=== PATIENT | female | born 1960 | race Two or more races ===

== ENCOUNTER → 2018-05-23 | Outpatient (CLI) | payer MEDICAID ==
[2018-05-23 16:45] LABS: ERYTHROCYTE SEDIMENTATION RATE 9 mm/hr (0-30)
[2018-05-23 17:20] LABS: RHEUMATOID FACTOR QUANT < 10.0 IU/ML (<15.0)
[2018-05-23 17:40] LABS: FOLATE 18.1 NG/ML
[2018-05-28 14:13] LABS: ANTINUCLEAR ANTIBODIES DIRECT Negative (Negative); CERULOPLASMIN 24.1 mg/dL (19.0-39.0); COPPER PLASMA 106 ug/dL (72-166); VITAMIN B1 LEVEL WHOLE BLOOD 92.7 nmol/L (66.5-200.0); VITAMIN B6,PYRIDOXAL PHOSPHATE 5.8 ug/L (2.0-32.8); VITAMIN E(ALPHA TOCOPHEROL) 15.4 mg/L (7.0-25.1); VITAMIN E(GAMMA TOCOPHEROL) 1.5 mg/L (0.5-5.5)
== END ==
LOC: M LAB 14:20
DX: R51 Headache (principal); M54.2 Cervicalgia; R26.89 Other abnormalities of gait and mobility
CPT/HCPCS: 82746

== ENCOUNTER → 2018-10-08 | Outpatient (REF) | payer MEDICAID ==
[2018-10-08 14:08] LABS: FREE T4 0.81 NG/DL (0.76-1.46); THYROID STIMULATING HORMONE 4.18 uIU/ML (0.358-3.740)
== END ==
LOC: M LABDRAW1 13:34
PROVIDERS: ATTEND Nurse Practitioner Family
DX: E04.2 Nontoxic multinodular goiter (principal)

== ENCOUNTER 2018-10-17 15:22 | Emergency (ER) | payer MEDICAID, OTHER ==
[~2018-10-17] VITALS: Ht 172.7 cm; Wt 70.5 kg
[2018-10-17] MEDS ORDERED: SERT-138 PO (15:30)
[2018-10-17] MEDS ORDERED: ACE65ERTAB PO (15:30)
[2018-10-17] MEDS ORDERED: TIZA4CAP PO (15:30)
[2018-10-17] MEDS ORDERED: ALPR0.5T3 PO (15:30)
[2018-10-17] MEDS ORDERED: PANT40TA3 PO (15:30)
[2018-10-17] MEDS ORDERED: COMBAER6 INH (15:33)
[2018-10-17 16:40] LABS: INFLUENZA A AMPLIFICATION NEGATIVE (NEGATIVE); INFLUENZA B AMPLIFICATION NEGATIVE (NEGATIVE)
[2018-10-17] MEDS ORDERED: NS 1,000 ML IV ONE (17:30)
[2018-10-17] MEDS ORDERED: methylPREDNISolone INJ 125 MG/2 ML VIAL (J2930) IV ONE (17:30)
[2018-10-17 17:53] LABS: BASO % 0.5 % (0.0-1.0); HEMATOCRIT 36.6 % (36.0-47.0); HEMOGLOBIN 12.4 g/dl (12.0-15.5); LYMPH # 2.3 10^3/uL (1.5-4.5); LYMPH % 31.2 % (24.0-44.0); MEAN CORPUSCULAR HGB CONC 33.9 g/dl (32.0-36.5); MEAN CORPUSCULAR VOLUME 88.6 fl (80.0-96.0); MONO # 0.6 10^3/uL (0.0-0.8); MONO % 8.2 % (0.0-5.0); NEUTROPHILS # 4.5 10^3/uL (1.8-7.7); PLATELET COUNT, AUTOMATED 250 10^3/uL (150-450); RED BLOOD COUNT 4.13 10^6/uL (4.00-5.40); WHITE BLOOD COUNT 7.4 10^3/uL (4.0-10.0)
--- NOTE | 2018-10-17 17:55 | REP ---
Chest two views HISTORY: Cough Comparison: None The lungs are clear. The heart is normal in size. The pulmonary vasculature is normal in appearance. The bony structure is intact. IMPRESSION: No acute disease. Electronically Signed by Mak Sung MD 10/17/2018 05:47 P
--- NOTE | 2018-10-17 18:13 | ECGEPIP ---
Stationary ECG Study [facility] - ED Test Date: 2018-10-17 Pat Name: SADAF SHETH Department: Room: - Gender: F [employer] Insurance: albert : 1960 Requested By: CYNDI RAMIREZ Order Number: [id number] Reading MD: Shahzad Andrade Measurements Intervals [place] Rate: 59 P: 65 MT: 178 QRS: 47 QRSD: 94 T: 57 QT: 456 QTc: 454 Interpretive Statements SINUS BRADYCARDIA NSTTW ABNORMALITIES NO PRIORS FOR COMPARISON Electronically Signed On 10-17-2018 18:13:23 EST by Shahzad Andrade
[2018-10-17 18:18] LABS: ALBUMIN 4.1 GM/DL (3.2-5.2); ALT/SGPT 26 U/L (12-78); BILIRUBIN,DIRECT 0.1 MG/DL (0.0-0.2); BILIRUBIN,TOTAL 0.2 MG/DL (0.2-1.0); BLOOD UREA NITROGEN 14 MG/DL (7-18); CALCIUM LEVEL 8.7 MG/DL (8.5-10.1); CARBON DIOXIDE LEVEL 31 MEQ/L (21-32); CHLORIDE LEVEL 104 MEQ/L (98-107); CK-MB VALUE MASS < 1.0 NG/ML (<3.6); CPK CREATINE PHOSPHOKINASE 84 U/L (26-192); CREATININE FOR GFR 0.68 MG/DL (0.55-1.30); GLOMERULAR FILTRATION RATE > 60.0 (>51); GLUCOSE, FASTING 96 MG/DL (70-100); MB/CK RELATIVE INDEX 1.19 (< OR =4); NT-PRO BNP 127 PG/ML (<125); POTASSIUM SERUM 4.5 MEQ/L (3.5-5.1); SODIUM LEVEL 139 MEQ/L (136-145); TOTAL PROTEIN 7.5 GM/DL (6.4-8.2); TROPONIN I < 0.02 NG/ML (< 0.10)
[2018-10-17] MEDS ORDERED: PRED20TA PO (19:18)
[2018-10-17 19:24] VITALS: BP 155/76
== END 2018-10-17 19:44 | disposition home or self-care (01) ==
LOC: M ED 15:22
DX: J44.1 Chronic obstructive pulmonary disease with (acute) exacerbation (principal); J06.9 Acute upper respiratory infection, unspecified; R00.1 Bradycardia, unspecified; K21.9 Gastro-esophageal reflux disease without esophagitis; M54.5 Low back pain; F41.9 Anxiety disorder, unspecified; Z86.14 Personal history of Methicillin resistant Staphylococcus aureus infection; Z72.0 Tobacco use; Z82.49 Family history of ischemic heart disease and other diseases of the circulatory system; Z79.899 Other long term (current) drug therapy; Z88.1 Allergy status to other antibiotic agents; Z88.0 Allergy status to penicillin
CPT/HCPCS: 71046; 80048; 80076; 82550; 82553; 83880; 85025; 87502; 87880; 93005; 96374; 99284; J2930

== ENCOUNTER → 2018-12-25 | Outpatient (CLI) | payer OTHER ==
[~2018-12-25] MED LIST: ACE65ERTAB PO; ALPR0.5T3 PO; COMBAER6 INH; PANT40TA3 PO; PRED20TA PO; SERT-138 PO; TIZA4CAP PO
[2018-12-25 13:48] LABS: HEMOGLOBIN A1c 6.2 %
[2018-12-25 13:50] LABS: BASO # 0.1 10^3/uL (0.0-0.2); BASO % 0.8 % (0.0-1.0); HEMATOCRIT 37.3 % (36.0-47.0); HEMOGLOBIN 12.4 g/dl (12.0-15.5); LYMPH # 2.1 10^3/uL (1.5-4.5); LYMPH % 31.1 % (24.0-44.0); MEAN CORPUSCULAR HEMOGLOBIN 29.5 pg (27.0-33.0); MEAN CORPUSCULAR HGB CONC 33.2 g/dl (32.0-36.5); MEAN CORPUSCULAR VOLUME 88.6 fl (80.0-96.0); MONO # 0.5 10^3/uL (0.0-0.8); MONO % 7.6 % (0.0-5.0); NEUTROPHILS % 60.3 % (36.0-66.0); PLATELET COUNT, AUTOMATED 270 10^3/uL (150-450); RED BLOOD COUNT 4.21 10^6/uL (4.00-5.40); WHITE BLOOD COUNT 6.6 10^3/uL (4.0-10.0)
[2018-12-25 13:57] LABS: ALBUMIN 3.8 GM/DL (3.2-5.2); ALT/SGPT 22 U/L (12-78); BILIRUBIN,TOTAL 0.3 MG/DL (0.2-1.0); BLOOD UREA NITROGEN 15 MG/DL (7-18); CALCIUM LEVEL 8.6 MG/DL (8.5-10.1); CARBON DIOXIDE LEVEL 31 MEQ/L (21-32); CHLORIDE LEVEL 104 MEQ/L (98-107); CHOLESTEROL LEVEL 269 MG/DL (<200); CHOLESTEROL RISK RATIO 5.847 (<5); CPK CREATINE PHOSPHOKINASE 327 U/L (26-192); CREATININE FOR GFR 0.72 MG/DL (0.55-1.30); GLOMERULAR FILTRATION RATE > 60.0 (>51); GLUCOSE, FASTING 94 MG/DL (70-100); HDL CHOLESTEROL 46 MG/DL (>40); LDL CHOLESTEROL 187 MG/DL (<100); LIPASE 141 U/L (73-393); MAGNESIUM LEVEL 2.1 MG/DL (1.8-2.4); MB/CK RELATIVE INDEX 1.22 (< OR =4); NON-HDL-C 223 MG/DL; POTASSIUM SERUM 4.1 MEQ/L (3.5-5.1); SODIUM LEVEL 139 MEQ/L (136-145); TOTAL PROTEIN 7.3 GM/DL (6.4-8.2); TRIGLYCERIDES LEVEL 182 MG/DL (<150); TROPONIN I < 0.02 NG/ML (< 0.10)
[2018-12-25 14:40] LABS: H PYLORI QUALITATIVE IgG NEGATIVE (NEGATIVE)
== END ==
LOC: M LAB 12:42
PROVIDERS: ATTEND Nurse Practitioner Family
DX: R07.9 Chest pain, unspecified (principal); Z13.228 Encounter for screening for other metabolic disorders; R14.0 Abdominal distension (gaseous)

== ENCOUNTER → 2018-12-31 | Outpatient (CLI) | payer OTHER ==
[2018-12-31 11:03] LABS: FREE T4 0.79 NG/DL (0.76-1.46)
[2019-01-01 09:59] LABS: THYROID PEROXIDASE ANTIBODY > 1300.0 U/ML (<60.0)
== END ==
LOC: M LAB 09:20
PROVIDERS: ATTEND Nurse Practitioner Family
DX: E04.2 Nontoxic multinodular goiter (principal)

== ENCOUNTER → 2019-01-03 | Outpatient (REF) | payer OTHER | LOC: M SFHCPLAZ 13:38 | PROVIDERS: ATTEND Nurse Practitioner Family | DX: Z12.4 Encounter for screening for malignant neoplasm of cervix (principal); N88.8 Other specified noninflammatory disorders of cervix uteri ==

== ENCOUNTER → 2019-01-29 | Outpatient (REF) | payer OTHER ==
[2019-01-29 16:24] LABS: C REACTIVE PROTEIN QUANTITATIV < 0.30 MG/DL (0.00-0.30); RHEUMATOID FACTOR QUANT < 10.0 IU/ML (<15.0)
[2019-02-01 00:07] LABS: ANA (HEP2) Negative (.)
== END ==
LOC: M SFHCPLAZ 14:24
PROVIDERS: ATTEND Nurse Practitioner Family
DX: R52 Pain, unspecified (principal)

== ENCOUNTER → 2019-02-19 | Outpatient (CLI) | payer OTHER ==
--- NOTE | 2019-02-20 20:11 | SLEEPHOME ---
DATE OF PROCEDURE: 02/19/2019 ORDERED BY: JAMES Allan Diagnostic home sleep testing was performed due to concern for the obstructive sleep apnea syndrome in this patient with a history of acid reflux disease. For testing, a nocturnal T3 respiratory monitoring device was used. Continuous record was made of pulse, oxygen saturation, airflow, chest and abdominal strain and body position. 10 hours and 59 minutes of data were reviewed. There were 8 hours marked as time in bed. During the interval marked time in bed there were 79 respiratory events identified of 10 seconds in duration or greater for respiratory event index of 9.9. The events were primarily obstructive, however 22 mixed and central apneas were seen. The events were not exclusive to body posture. Baseline pulse rate 61 beats per minute. Pulse rate ranged 52-155. Baseline saturation of 94%. Saturations fell as low as 77% and the oxygen desaturation index is 2.9. Testing was performed in both the supine and nonsupine positions. IMPRESSION Abnormal home sleep testing with repetitive respiratory events and oxygen desaturations to 77% with a respiratory event index of 9.9 is consistent with the obstructive sleep apnea syndrome. RECOMMENDATIONS The patient should be encouraged to undergo formal sleep evaluation.
== END ==
LOC: M SLEEP HO 10:11
PROVIDERS: ATTEND Nurse Practitioner Family
DX: R06.83 Snoring (principal)

== ENCOUNTER → 2019-02-28 | Outpatient (REF) | payer OTHER ==
[2019-02-28 16:14] LABS: FREE T4 0.72 NG/DL (0.76-1.46); THYROID STIMULATING HORMONE 7.85 uIU/ML (0.358-3.740)
== END ==
LOC: M LABDRAW1 15:44
PROVIDERS: ATTEND Nurse Practitioner Family
DX: E06.3 Autoimmune thyroiditis (principal)

== ENCOUNTER → 2019-03-13 | Outpatient (CLI) | payer OTHER ==
--- NOTE | 2019-03-13 17:05 | REP ---
Pelvic sonography: History: Pelvic pain. Findings: Transabdominal and transvaginal scanning are performed. Uterine dimensions are normal at 5.8 x 4.2 x 2.8 cm. Endometrial echo is 0.3 cm thick. There is a hypoechoic area in the right uterine myometrium measuring 1.3 cm in greatest diameter consistent with fibroid. The right ovary could not be seen and according to the patient is surgically absent. The left ovary measures 2.1 x 1.6 x 1.9 cm and has a normal appearance. Impression: 1.3 cm uterine fibroid. Otherwise negative pelvic sonography. The patient status post right oophorectomy. Electronically Signed by Escobar Tong MD 03/13/2019 07:25 P
== END ==
LOC: M RAD 11:43
PROVIDERS: ATTEND Nurse Practitioner Family
DX: R10.2 Pelvic and perineal pain (principal)

== ENCOUNTER → 2019-05-12 | Outpatient (CLI) | payer OTHER ==
[2019-05-12 14:41] LABS: FREE T4 0.67 NG/DL (0.76-1.46); THYROID STIMULATING HORMONE 2.61 uIU/ML (0.358-3.740)
== END ==
LOC: M LAB 13:38
PROVIDERS: ATTEND Nurse Practitioner Family
DX: E06.3 Autoimmune thyroiditis (principal)

== ENCOUNTER → 2019-05-16 | Outpatient (REF) | payer OTHER ==
[2019-05-16 16:35] LABS: BASO % 0.4 % (0.0-1.0); HEMATOCRIT 35.9 % (36.0-47.0); HEMOGLOBIN 12.2 g/dl (12.0-15.5); LYMPH % 29.2 % (24.0-44.0); MEAN CORPUSCULAR HEMOGLOBIN 30.8 pg (27.0-33.0); MEAN CORPUSCULAR VOLUME 90.7 fl (80.0-96.0); MONO # 0.5 10^3/uL (0.0-0.8); MONO % 7.5 % (0.0-5.0); NEUTROPHILS # 4.2 10^3/uL (1.5-8.5); NEUTROPHILS % 62.6 % (36.0-66.0); PLATELET COUNT, AUTOMATED 225 10^3/uL (150-450); RED BLOOD COUNT 3.96 10^6/uL (4.00-5.40); WHITE BLOOD COUNT 6.7 10^3/uL (4.0-10.0)
[2019-05-16 16:36] LABS: ALBUMIN 3.8 GM/DL (3.2-5.2); ALT/SGPT 24 U/L (12-78); BILIRUBIN,TOTAL 0.3 MG/DL (0.2-1.0); BLOOD UREA NITROGEN 13 MG/DL (7-18); CALCIUM LEVEL 8.7 MG/DL (8.5-10.1); CARBON DIOXIDE LEVEL 29 MEQ/L (21-32); CHLORIDE LEVEL 105 MEQ/L (98-107); CK-MB VALUE MASS 2.6 NG/ML (<3.6); CPK CREATINE PHOSPHOKINASE 122 U/L (26-192); CREATININE FOR GFR 0.65 MG/DL (0.55-1.30); GLOMERULAR FILTRATION RATE > 60.0 (>51); GLUCOSE, FASTING 73 MG/DL (70-100); MB/CK RELATIVE INDEX 2.13 (< OR =4); POTASSIUM SERUM 3.9 MEQ/L (3.5-5.1); SODIUM LEVEL 141 MEQ/L (136-145); TOTAL PROTEIN 7.1 GM/DL (6.4-8.2); TROPONIN I < 0.02 NG/ML (< 0.10)
== END ==
LOC: M SFHCPLAZ 14:10
PROVIDERS: ATTEND Nurse Practitioner Family
DX: R07.89 Other chest pain (principal)

== ENCOUNTER → 2019-06-21 | Outpatient (CLI) | payer OTHER ==
[~2019-06-21] MED LIST changes: +CEFD1CAP8 PO
--- NOTE | 2019-06-24 16:35 | SLEEPCENT ---
DATE OF PROCEDURE: 06/21/2019 ORDERED BY: Kaci Delgado MD Nocturnal polysomnography was performed for the titration of pressure therapy in this patient with a clinical diagnosis of obstructive sleep apnea syndrome confirmed by home testing revealing a respiratory event index of 9.9. For testing the patient was fit with a [employer] Simplus full-face mask of small size, 4 cm of water pressure were applied to the circuit and the lights were extinguished. 7 hours and 52 minutes of data were reviewed. There were 390.5 minutes of sleep identified. Sleep latency was short at 8.5 minutes. Rapid eye movement (REM) latency was delayed at 414.5 minutes. Sleep architecture showed poor progression early in the study. There was some REM late in the test. Overall sleep efficiency was 84.4%. The electrocardiogram showed a sinus rhythm with an average heart rate 60 beats per minute. EEG showed normal waveforms for awake and sleep. Persistence of respiratory events prompted an increase in continuous positive airway pressure (CPAP) despite optimal mask fit and minimal air leak. The patient was changed to a bilevel device to address persistent hypopneic respiratory patterning. Best sleep was seen late in the test on a bilevel device inspiratory 23 over expiratory of 19 with which the patient slept through REM without respiratory event or oxygen desaturation. IMPRESSION: Obstructive sleep apnea syndrome (G47.33). RECOMMENDATIONS: Nightly use of pressure therapy via bilevel device, inspiratory 23 over expiratory of 19.
== END ==
LOC: M SLEEP 20:00
PROVIDERS: ATTEND Internal Medicine Pulmonary Disease
DX: G47.33 Obstructive sleep apnea (adult) (pediatric) (principal)

== ENCOUNTER 2019-07-04 09:14 | Day surgery (SDC) | payer OTHER ==
[~2019-07-04] VITALS: Ht 172.7 cm; Wt 65.2 kg
[~2019-07-04 09:14] MED LIST changes: +NS 1,000 ML IV ONE
[2019-07-04] MEDS ORDERED: PROPOFOL 500 MG/50 ML VIAL As Ordered ONE (11:45)
[2019-07-04] MEDS ORDERED: fentaNYL 100 MCG/2 ML INJECTION (J3010) As Ordered ONE (11:45)
[2019-07-04] MEDS ORDERED: LIDOCAINE 2% INJ 100 MG/5 ML SDV (FOR ANES.) As Ordered ONE (11:45)
--- NOTE | 2019-07-04 11:46 | ROOR ---
Patient Name: Rose Huntley Procedure Date: 07/04/2019 10:51 AM Date of : 1960 Age: 58 Room: [facility] Gender: Female Note Status: Finalized Procedure: Upper GI endoscopy Indications: Epigastric abdominal pain, Dysphagia Providers: Jaylen Gay MD Referring MD: Ave Nazario Requesting Provider: Medicines: Monitored Anesthesia Care Complications: No immediate complications. Procedure: Pre-Anesthesia Assessment: - Prior to the procedure, a History and Physical was performed, and patient medications and allergies were reviewed. The patient is competent. The risks and benefits of the procedure and the sedation options and risks were discussed with the patient. All questions were answered and informed consent was obtained. Patient identification and proposed procedure were verified by the physician, the nurse and the anesthesiologist in the procedure room. Mental Status Examination: alert and oriented. Airway Examination: normal oropharyngeal airway and neck mobility. Respiratory Examination: clear to auscultation. CV Examination: normal. Prophylactic Antibiotics: The patient does not require prophylactic antibiotics. Prior Anticoagulants: The patient has taken no previous anticoagulant or antiplatelet agents. ASA Grade Assessment: II - A patient with mild systemic disease. After reviewing the risks and benefits, the patient was deemed in satisfactory condition to undergo the procedure. The anesthesia plan was to use monitored anesthesia care (MAC). Immediately prior to administration of medications, the patient was re-assessed for adequacy to receive sedatives. The heart rate, respiratory rate, oxygen saturations, blood pressure, adequacy of pulmonary ventilation, and response to care were monitored throughout the procedure. The physical status of the patient was re-assessed after the procedure. The Endoscope was introduced through the mouth, and advanced to the second part of duodenum. The upper GI endoscopy was accomplished without difficulty. The patient tolerated the procedure well. Findings: Patchy, white plaques were found in the middle third of the esophagus and in the lower third of the esophagus. Biopsies were taken with a cold forceps for histology. Biopsies were obtained from the proximal and distal esophagus with cold forceps for histology of suspected eosinophilic esophagitis. Verification of patient identification for the specimen was done by the physician and nurse using the patient's name, date and medical record number. Estimated blood loss was minimal. Scattered mild inflammation characterized by erythema and granularity was found in the gastric antrum. Biopsies were taken with a cold forceps for Helicobacter pylori testing. The duodenal bulb and second portion of the duodenum were normal. Biopsies for histology were taken with a cold forceps for evaluation of celiac disease. Impression: - Esophageal plaques were found, doubt candidiasis. Biopsied. - Gastritis. Biopsied. - Normal duodenal bulb and second portion of the duodenum. Biopsied. Recommendation: - Patient has a contact number available for emergencies. The signs and symptoms of potential delayed complications were discussed with the patient. Return to normal activities tomorrow. Written discharge instructions were provided to the patient. - Resume regular diet. - Continue present medications. - Await pathology results. - Telephone GI clinic for pathology results in 2 weeks. - Return to primary care physician. Jaylen Gay MD Jaylen Gay MD 07/04/2019 11:45:23 AM Electronically signed by Jaylen Gay MD Number of Addenda: 0 Note Initiated On: 07/04/2019 10:51 AM Estimated Blood Loss: Estimated blood loss was minimal.
--- NOTE | 2019-07-04 11:48 | ROOR ---
Patient Name: Rose Huntley Procedure Date: 07/04/2019 10:52 AM Date of : 1960 Age: 58 Room: [facility] Gender: Female Note Status: Finalized Procedure: Colonoscopy Indications: Change in bowel habits, Constipation Providers: Jaylen Gay MD Referring MD: Ave Nazario Requesting Provider: Medicines: Monitored Anesthesia Care Complications: No immediate complications. Procedure: Pre-Anesthesia Assessment: - Prior to the procedure, a History and Physical was performed, and patient medications and allergies were reviewed. The patient is competent. The risks and benefits of the procedure and the sedation options and risks were discussed with the patient. All questions were answered and informed consent was obtained. Patient identification and proposed procedure were verified by the physician, the nurse and the anesthesiologist in the procedure room. Mental Status Examination: alert and oriented. Prophylactic Antibiotics: The patient does not require prophylactic antibiotics. Prior Anticoagulants: The patient has taken no previous anticoagulant or antiplatelet agents. ASA Grade Assessment: II - A patient with mild systemic disease. After reviewing the risks and benefits, the patient was deemed in satisfactory condition to undergo the procedure. The anesthesia plan was to use monitored anesthesia care (MAC). Immediately prior to administration of medications, the patient was re-assessed for adequacy to receive sedatives. The heart rate, respiratory rate, oxygen saturations, blood pressure, adequacy of pulmonary ventilation, and response to care were monitored throughout the procedure. The physical status of the patient was re-assessed after the procedure. The Colonoscope was introduced through the anus and advanced to the terminal ileum, with identification of the appendiceal orifice and IC valve. The colonoscopy was performed without difficulty. The patient tolerated the procedure well. The quality of the bowel preparation was good. The terminal ileum, ileocecal valve, appendiceal orifice, and rectum were photographed. Scope insertion time was 3 minutes. Scope withdrawal time was 9 minutes. The total duration of the procedure was 12 minutes. Findings: The perianal and digital rectal examinations were normal. The terminal ileum appeared normal. Three sessile polyps were found in the ascending colon. The polyps were 4 to 5 mm in size. These polyps were removed with a cold biopsy forceps. Resection and retrieval were complete. Verification of patient identification for the specimen was done by the physician and nurse using the patient's name, date and medical record number. A 5 mm polyp was found in the recto-sigmoid colon. The polyp was sessile. The polyp was removed with a cold biopsy forceps. Resection and retrieval were complete. A few small-mouthed diverticula were found in the sigmoid colon. There was no evidence of diverticular bleeding. Non-bleeding external and internal hemorrhoids were found during retroflexion. The hemorrhoids were medium-sized. Impression: - The examined portion of the ileum was normal. - Three 4 to 5 mm polyps in the ascending colon, removed with a cold biopsy forceps. Resected and retrieved. - One 5 mm polyp at the recto-sigmoid colon, removed with a cold biopsy forceps. Resected and retrieved. - Mild diverticulosis in the sigmoid colon. There was no evidence of diverticular bleeding. - Non-bleeding external and internal hemorrhoids. Recommendation: - Patient has a contact number available for emergencies. The signs and symptoms of potential delayed complications were discussed with the patient. Return to normal activities tomorrow. Written discharge instructions were provided to the patient. - High fiber diet. - Continue present medications. - Await pathology results. - Use fiber, for example Citrucel, Fibercon, Konsyl or Metamucil. - Repeat colonoscopy in 3 - 5 years for surveillance based on pathology results. - Telephone GI clinic for pathology results in 2 weeks. - Return to primary care physician. Jaylen Gay MD Jaylen Gay MD 07/04/2019 11:48:26 AM Electronically signed by Jaylen Gay MD Number of Addenda: 0 Note Initiated On: 07/04/2019 10:52 AM Estimated Blood Loss: Estimated blood loss was minimal.
[2019-07-04 11:50] VITALS: BP 135/87
== END 2019-07-04 12:05 | disposition home or self-care (01) ==
LOC: M OPP 09:14
PROVIDERS: ATTEND Internal Medicine Gastroenterology
DX: K63.5 Polyp of colon (principal); K57.30 Diverticulosis of large intestine without perforation or abscess without bleeding; K64.9 Unspecified hemorrhoids; R19.4 Change in bowel habit; K22.9 Disease of esophagus, unspecified; K29.70 Gastritis, unspecified, without bleeding; R10.13 Epigastric pain; R13.10 Dysphagia, unspecified; J44.9 Chronic obstructive pulmonary disease, unspecified; F17.210 Nicotine dependence, cigarettes, uncomplicated; Z79.899 Other long term (current) drug therapy; Z88.0 Allergy status to penicillin; Z88.8 Allergy status to other drugs, medicaments and biological substances; Z91.018 Allergy to other foods; Z80.0 Family history of malignant neoplasm of digestive organs
CPT/HCPCS: 43239; 45380; 88305; J3010

== ENCOUNTER → 2019-08-14 | Outpatient (CLI) | payer OTHER ==
[~2019-08-14] MED LIST changes: -NS 1,000 ML IV ONE
[2019-08-14 13:40] LABS: FREE T4 0.7 NG/DL (0.76-1.46); THYROID STIMULATING HORMONE 3.98 uIU/ML (0.358-3.740)
== END ==
LOC: M LAB 12:18
PROVIDERS: ATTEND Nurse Practitioner Family
DX: E06.3 Autoimmune thyroiditis (principal)

== ENCOUNTER → 2019-08-14 | Outpatient (CLI) | payer OTHER ==
[2019-08-14 13:07] LABS: BASO # 0.1 10^3/uL (0.0-0.2); BASO % 0.7 % (0.0-1.0); HEMATOCRIT 38.3 % (36.0-47.0); HEMOGLOBIN 12.8 g/dl (12.0-15.5); LYMPH # 2.2 10^3/uL (1.5-5.0); LYMPH % 31.6 % (24.0-44.0); MEAN CORPUSCULAR HEMOGLOBIN 30.2 pg (27.0-33.0); MEAN CORPUSCULAR HGB CONC 33.4 g/dl (32.0-36.5); MEAN CORPUSCULAR VOLUME 90.3 fl (80.0-96.0); MONO # 0.6 10^3/uL (0.0-0.8); MONO % 8.1 % (0.0-5.0); NEUTROPHILS # 4.1 10^3/uL (1.5-8.5); NEUTROPHILS % 59.3 % (36.0-66.0); PLATELET COUNT, AUTOMATED 228 10^3/uL (150-450); RED BLOOD COUNT 4.24 10^6/uL (4.00-5.40); WHITE BLOOD COUNT 6.9 10^3/uL (4.0-10.0)
[2019-08-14 13:29] LABS: ALBUMIN 4.1 GM/DL (3.2-5.2); ALT/SGPT 23 U/L (12-78); BILIRUBIN,DIRECT 0.1 MG/DL (0.0-0.2); BILIRUBIN,TOTAL 0.4 MG/DL (0.2-1.0); BLOOD UREA NITROGEN 16 MG/DL (7-18); CREATININE FOR GFR 0.75 MG/DL (0.55-1.30); FERRITIN 69 NG/ML (8-252); GLOMERULAR FILTRATION RATE > 60.0 (>51); IRON (FE) 101 UG/DL (50-170); PERCENT SATURATION 33.6 % (13.2-45.0); TOTAL IRON BINDING CAPACITY 301 UG/DL (250-450); TOTAL PROTEIN 7.6 GM/DL (6.4-8.2)
[2019-08-14 13:36] LABS: FOLATE > 24.0 NG/ML; VITAMIN B12 LEVEL 600 PG/ML
[2019-08-15 14:21] LABS: TISSUE TRANSGLUTAMINASE IgA <2 U/mL (0-3); UNITSIGA FOR GLIADIN IGA <1 units (0-19); UNITSIGG FOR GLIADIN IGG 2 units (0-19)
== END ==
LOC: M LAB 12:15
PROVIDERS: ATTEND Internal Medicine Gastroenterology
DX: R10.13 Epigastric pain (principal)

== ENCOUNTER → 2019-10-14 | Outpatient (CLI) | payer OTHER ==
--- NOTE | 2019-10-14 11:20 | REP ---
Gastric emptying nuclear scintigraphy: History: Epigastric pain. Abdominal distension. Bloating. Technique: 1.07 mCi of technetium-99m sulfur colloid was ingested in two scrambled eggs and 6 ounces of water and sequential anterior and posterior images are acquired for an 89-minute imaging observation period. Regions of interest are drawn around the stomach to plot gastric emptying. Scintigraphic findings: Expected T1/2 is 90 minutes. 48 % emptying is observed in this patient during the 89-minute imaging observation period, for a calculated T1/2 in this patient of 106 minutes. Impression: Normal gastric emptying. Electronically Signed by Escobar Tong MD 10/14/2019 11:11 A
== END ==
LOC: M RAD 07:59
PROVIDERS: ATTEND Internal Medicine Gastroenterology
DX: R10.13 Epigastric pain (principal); R14.0 Abdominal distension (gaseous)
CPT/HCPCS: 78264; A9541

== ENCOUNTER → 2019-10-14 | Outpatient (CLI) | payer OTHER ==
[2019-10-14 09:18] LABS: ALBUMIN 3.8 GM/DL (3.2-5.2); ALT/SGPT 23 U/L (12-78); BILIRUBIN,TOTAL 0.3 MG/DL (0.2-1.0); BLOOD UREA NITROGEN 19 MG/DL (7-18); CALCIUM LEVEL 8.6 MG/DL (8.5-10.1); CARBON DIOXIDE LEVEL 31 MEQ/L (21-32); CHLORIDE LEVEL 108 MEQ/L (98-107); CHOLESTEROL LEVEL 268 MG/DL (<200); CHOLESTEROL RISK RATIO 5.826 (<5); GLOMERULAR FILTRATION RATE > 60.0 (>51); GLUCOSE, FASTING 97 MG/DL (70-100); HDL CHOLESTEROL 46 MG/DL (>40); LDL CHOLESTEROL 197 MG/DL (<100); NON-HDL-C 222 MG/DL; POTASSIUM SERUM 4.5 MEQ/L (3.5-5.1); SODIUM LEVEL 143 MEQ/L (136-145); TRIGLYCERIDES LEVEL 126 MG/DL (<150)
[2019-10-14 10:30] LABS: HEMOGLOBIN A1c 5.6 %
== END ==
LOC: M LAB 08:03
PROVIDERS: ATTEND Nurse Practitioner Family
DX: R73.01 Impaired fasting glucose (principal); E78.5 Hyperlipidemia, unspecified

== ENCOUNTER → 2019-11-24 | Outpatient (REF) | payer OTHER | LOC: M SFHCPLAZ 16:37 | PROVIDERS: ATTEND Student in an Organized Health Care Education/Training Program | DX: J06.9 Acute upper respiratory infection, unspecified (principal) ==

== ENCOUNTER 2020-03-15 16:43 | Emergency (ER) | payer OTHER ==
[~2020-03-15] VITALS: Ht 167.6 cm; Wt 69.9 kg
[~2020-03-15 16:43] MED LIST changes: +PANT40TA29 PO; -PANT40TA3 PO
[2020-03-15] MEDS ORDERED: PROBIOTICS (16:52)
[2020-03-15] MEDS ORDERED: MAGNESIUM (16:52)
[2020-03-15 17:42] LABS: BASO # 0.1 10^3/uL (0.0-0.2); HEMATOCRIT 35.8 % (36.0-47.0); HEMOGLOBIN 12.1 g/dl (12.0-15.5); MEAN CORPUSCULAR HEMOGLOBIN 30.1 pg (27.0-33.0); MEAN CORPUSCULAR HGB CONC 33.8 g/dl (32.0-36.5); MEAN CORPUSCULAR VOLUME 89.1 fl (80.0-96.0); MONO # 0.5 10^3/uL (0.0-0.8); MONO % 6.7 % (0.0-5.0); NEUTROPHILS # 4.8 10^3/uL (1.5-8.5); NEUTROPHILS % 65.2 % (36.0-66.0); PLATELET COUNT, AUTOMATED 259 10^3/uL (150-450); RED BLOOD COUNT 4.02 10^6/uL (4.00-5.40); WHITE BLOOD COUNT 7.3 10^3/uL (4.0-10.0)
[2020-03-15 18:11] LABS: BLOOD UREA NITROGEN 12 MG/DL (7-18); CALCIUM LEVEL 9.1 MG/DL (8.5-10.1); CARBON DIOXIDE LEVEL 29 MEQ/L (21-32); CHLORIDE LEVEL 106 MEQ/L (98-107); CPK CREATINE PHOSPHOKINASE 132 U/L (26-192); CREATININE FOR GFR 0.84 MG/DL (0.55-1.30); GLOMERULAR FILTRATION RATE > 60.0 (>51); GLUCOSE, FASTING 89 MG/DL (70-100); POTASSIUM SERUM 4.2 MEQ/L (3.5-5.1); SODIUM LEVEL 141 MEQ/L (136-145)
[2020-03-15 18:12] LABS: CK-MB VALUE MASS 1.8 NG/ML (<3.6); MB/CK RELATIVE INDEX 1.36 (< OR =4); TROPONIN I < 0.02 NG/ML (< 0.10)
[2020-03-15 18:30] VITALS: BP 116/73
--- NOTE | 2020-03-15 18:34 | REP ---
Portable chest x-ray: Single view. History: Chest pain. Comparison chest x-ray: October 17, 2018. Findings: The lungs are well inflated and clear. The pleural angles are sharp. Cardiomediastinal silhouette is unremarkable. No bony abnormalities seen. Impression: Negative portable chest x-ray. Electronically Signed by Escobar Tong MD 03/15/2020 06:27 P
--- NOTE | 2020-03-16 07:56 | ECGEPIP ---
[facility] - ED Test Date: 2020-03-15 Pat Name: SADAF SHETH Department: Room: - Gender: Female [employer]: : 1960 Requested By: MIGUEL RAMIREZ Order Number: [id number] Reading MD: Edward Milan Measurements Intervals [place] Rate: 63 P: 68 PA: 179 QRS: 48 QRSD: 92 T: 63 QT: 419 QTc: 432 Interpretive Statements SINUS RHYTHM Electronically Signed on 03-16-2020 7:56:12 EDT by Edward Milan
== END 2020-03-15 18:42 | disposition home or self-care (01) ==
LOC: M ED 16:43
DX: R07.89 Other chest pain (principal); G89.29 Other chronic pain; M54.5 Low back pain; M25.512 Pain in left shoulder; J44.9 Chronic obstructive pulmonary disease, unspecified; K21.9 Gastro-esophageal reflux disease without esophagitis; E78.5 Hyperlipidemia, unspecified; G47.33 Obstructive sleep apnea (adult) (pediatric); M50.30 Other cervical disc degeneration, unspecified cervical region; M51.36 Other intervertebral disc degeneration, lumbar region; F33.9 Major depressive disorder, recurrent, unspecified; F41.9 Anxiety disorder, unspecified; F17.210 Nicotine dependence, cigarettes, uncomplicated; Z88.0 Allergy status to penicillin; Z88.1 Allergy status to other antibiotic agents; Z91.010 Allergy to peanuts; Z79.899 Other long term (current) drug therapy